=== PATIENT | male | born 1975 | race Caucasian/White ===

== ENCOUNTER 2018-03-12 09:27 | Day surgery (SDC) | payer MEDICARE ==
[~2018-03-12] VITALS: Ht 170.2 cm; Wt 64.0 kg
[~2018-03-12 09:27] MED LIST: HYDR-4353 PO; ceFAZolin 1,000 MG in NS 100ML IVPB IV ONE; famotidine 20mg tablet PO ONE; ringers solution, lacted 1,000 ML IV SCH
[2018-03-12 11:03] LABS: BASOPHILS # (AUTO) 0.1 X10'3 (0-0.2); BASOPHILS % (AUTO) 0.6 % (0-1); EOSINOPHILS # (AUTO) 0.1 X10'3 (0-0.9); EOSINOPHILS % (AUTO) 1.2 % (0-6); LYMPHOCYTES % (AUTO) 30.3 % (21-51); MEAN CORPUSCULAR HEMOGLOBIN 30.3 PG (27.0-31.0); MEAN CORPUSCULAR HGB CONC 33.4 % (33.0-36.5); MEAN CORPUSCULAR VOLUME 90.8 FL (78-98); MEAN PLATELET VOLUME 8.9 FL (7.4-10.4); MONOCYTES # (AUTO) 0.6 X10'3 (0-0.9); MONOCYTES % (AUTO) 6.4 % (2-12); NEUTROPHILS % (AUTO) 61.5 % (42-75); PRE OP HEMATOCRIT 42.4 % (42.0-52.0); PRE OP HEMOGLOBIN 14.1 g/dL (14.0-17.9); PRE OP PLATELET COUNT 236 X10'3 (140-440); RED BLOOD COUNT 4.67 X10'6 (4.70-6.10); RED CELL DISTRIBUTION WIDTH 14.1 % (11.5-14.5)
[2018-03-12 11:05] LABS: ISTAT HGB 14.6 g/dl (14.0-18.0); ISTAT IONIZED CALCIUM 1.04 mmol/L (1.03-1.32); ISTAT K 4.3 mmol/L (3.5-5.1)
[2018-03-12] MEDS ORDERED: BUPIVAcaine/PF 2.5mg/ml (0.25%) 10ml vial ONE (13:08)
[2018-03-12] MEDS ORDERED: fentaNYL/PF 50MCG/1 ML 2ML syringe ONE (13:21)
[2018-03-12] MEDS ORDERED: MIDAZolam 5mg/5ml vial ONE (13:22)
[2018-03-12 13:49] VITALS: BP 104/75
[2018-03-12 13:59] VITALS: BP 111/70
[2018-03-12 14:07] VITALS: BP 119/68
[2018-03-12 14:09] VITALS: BP 107/66
[2018-03-12 14:19] VITALS: BP 103/66
[2018-03-12 14:29] VITALS: BP 110/72
== END 2018-03-12 14:39 | disposition home or self-care (01) ==
LOC: PAS 09:27
PROVIDERS: ATTEND Orthopaedic Surgery Hand Surgery
DX: D21.12 Benign neoplasm of connective and other soft tissue of left upper limb, including shoulder (principal); F12.90 Cannabis use, unspecified, uncomplicated; I21.29 ST elevation (STEMI) myocardial infarction involving other sites; Z87.442 Personal history of urinary calculi; Z88.0 Allergy status to penicillin; Z79.891 Long term (current) use of opiate analgesic; Z98.890 Other specified postprocedural states
CPT/HCPCS: 25073; 36415; 80047; 85025; 93005; A6449; J0690; J2250; J3010; J3490; J7120